=== PATIENT | male | born 1970 | race Two or more races ===

== ENCOUNTER 2025-02-24 16:16 | Emergency (ER) | payer MEDICAID ==
[~2025-02-24] VITALS: Ht 177.8 cm; Wt 97.1 kg
[2025-02-24] MEDS ORDERED: FLUO20CA42 PO (17:20)
[2025-02-24] MEDS ORDERED: MOUNJARO (17:20)
[2025-02-24] MEDS ORDERED: HUMALOG SQ (17:32)
[2025-02-24] MEDS ORDERED: INSU100V7 SQ (17:32)
[2025-02-24] MEDS ORDERED: MUPI15CR TP (21:07)
[2025-02-24] MEDS ORDERED: DICL500C PO (21:07)
[2025-02-24 21:12] LABS: BASOPHILS # (AUTO) 0.1 K/UL (0.0-0.2); BASOPHILS % (AUTO) 0.8 % (0.0-2.0); DIFFERENTIAL COMMENT 1; EOSINOPHILS # (AUTO) 0.2 K/uL (0.0-0.7); EOSINOPHILS % (AUTO) 2.3 % (0.0-7.0); HEMATOCRIT 35.6 % (36.7-47.1); HEMOGLOBIN 11.9 g/dL (12.5-16.3); LYMPHOCYTES # (AUTO) 1.6 K/uL (0.8-4.8); LYMPHOCYTES % (AUTO) 22.2 % (20.5-51.5); MEAN CORPUSCULAR HEMOGLOBIN 28.5 uug (23.8-33.4); MEAN CORPUSCULAR HGB CONC 34 g/dL (32.5-36.3); MEAN CORPUSCULAR VOLUME 85.1 fL (73.0-96.2); MONOCYTES # (AUTO) 0.6 K/uL (0.1-1.30); MONOCYTES % (AUTO) 8.8 % (0.0-11.0); NEUTROPHILS # (AUTO) 4.7 K/uL (1.8-8.9); NEUTROPHILS % (AUTO) 65.9 % (38.5-71.5); PLATELET COUNT (AUTO) 301 K/uL (152-348); RED BLOOD CELL COUNT(AUTO) 4.18 MIL/uL (4.06-5.63); RED CELL DISTRIBUTION WIDTH 13.9 % (12.1-16.2); WHITE BLOOD COUNT (AUTO) 7.1 K/uL (3.6-10.2)
[2025-02-24 21:18] LABS: CALCIUM 8.9 mg/dL (8.5-10.1); CREATININE 0.8 mg/dL (0.6-1.3); POTASSIUM 4.1 mmol/L (3.5-5.1)
[2025-02-24 21:20] LABS: C-REACTIVE PROTEIN 1.15 mg/dL (0.00-0.30)
[2025-02-24] MEDS ORDERED: CEFTRIAXONE /D5W 50ML IVPB **ER PYXIS IV ONE (21:28)
[2025-02-24] MEDS: CEFTRIAXONE 1 G in IV DEXTROSE 5% 50 ML IV ONE (21:29)
[2025-02-24 23:09] VITALS: BP 125/70; TEMP 98; O2SAT 99
== END 2025-02-24 21:45 | disposition home or self-care (01) ==
LOC: ER 16:16
DX: L53.8 Other specified erythematous conditions (principal); E11.621 Type 2 diabetes mellitus with foot ulcer; L97.519 Non-pressure chronic ulcer of other part of right foot with unspecified severity; Z79.4 Long term (current) use of insulin; Z79.899 Other long term (current) drug therapy; Z86.14 Personal history of Methicillin resistant Staphylococcus aureus infection; Z20.822 Contact with and (suspected) exposure to COVID-19
CPT/HCPCS: 99284; 96365; 87426; 80048; 82962 ×2; 85025; 86140; 36415; 73620; J0696; A4606; A4663